=== PATIENT | female | born 1965 | race Two or more races ===

== ENCOUNTER 2021-02-22 22:25 | Emergency (ER) | payer BC ==
[~2021-02-22] VITALS: Ht 152.4 cm; Wt 58.1 kg
[2021-02-23] MEDS ORDERED: MUPIROCIN22 GM TOP (01:14)
[2021-02-23] MEDS ORDERED: CEPHALEXIN500 MG PO (01:14)
[2021-02-23] MEDS ORDERED: ALLEGRA-D 24 H1 EACH PO (01:14)
== END 2021-02-23 01:22 ==
LOC: ER 22:25
DX: S40.862A Insect bite (nonvenomous) of left upper arm, initial encounter (principal); W57.XXXA Bitten or stung by nonvenomous insect and other nonvenomous arthropods, initial encounter; Y92.89 Other specified places as the place of occurrence of the external cause